=== PATIENT | female | born 1990 | race Caucasian/White ===

== ENCOUNTER 2020-11-29 16:00 | Emergency (ER) | payer OTHER ==
[~2020-11-29 16:00] MED LIST: FLEXERIL5 MG PO; PREDNISONE 20MG20 MG PO; PROTONIX 40MG T40 MG PO; ULTRAM50 MG PO; ZOFRAN4 MG PO
[2020-11-29] MEDS ORDERED: CYCLOBENZAPRINE10 MG PO (17:10)
[2020-11-29] MEDS ORDERED: ETODOLAC500 MG PO (17:10)
== END 2020-11-29 18:02 | disposition home or self-care (01) ==
LOC: FER 16:00
DX: M75.102 Unspecified rotator cuff tear or rupture of left shoulder, not specified as traumatic (principal); E11.9 Type 2 diabetes mellitus without complications; I10 Essential (primary) hypertension; F17.200 Nicotine dependence, unspecified, uncomplicated; Z79.84 Long term (current) use of oral hypoglycemic drugs; Z79.899 Other long term (current) drug therapy
CPT/HCPCS: 73030; J1885

== ENCOUNTER 2021-04-17 16:09 | Emergency (ER) | payer OTHER ==
[~2021-04-17 16:09] MED LIST changes: +CYCLOBENZAPRINE10 MG PO; +ETODOLAC500 MG PO
[2021-04-17 17:20] LABS: ALBUMIN 3.2 g/dL (3.4-5.0); BILIRUBIN - TOTAL 0.3 mg/dL (0.2-1.0); BUN/CREAT RATIO (CALC) 11.6 RATIO; CREATININE 0.69 mg/dL (0.51-0.95); POTASSIUM 3.5 mmol/L (3.5-5.1); TOTAL PROTEIN 7.2 g/dL (6.4-8.2)
[2021-04-17 17:24] LABS: BILIRUBIN NEGATIVE (NEGATIVE); BLOOD 3+ Ery/uL (NEGATIVE); CLARITY CLEAR (CLEAR); COLOR YELLOW (YELLOW); GLUCOSE (U) NORMAL (NORMAL); LEUKOCYTES 1+ Leu/uL (NEGATIVE); NITRITE NEGATIVE (NEGATIVE); PROTEIN NEGATIVE (NEGATIVE); SPECIFIC GRAVITY 1.025 (1.001-1.030); UROBILINOGEN 0.2 mg/dL (0.2-1.0); pH 5.5 (5.0-9.0)
[2021-04-17 17:24] LABS: BASOPHIL 0.5 % (0-2); EOSINOPHIL 2.7 % (0-5); HCT 42.5 % (37.0-47.0); HGB 14.6 g/dl (12.5-16.0); LYMPHOCYTE 36.6 % (15-48); MCHC 34.4 g/dL (32.0-36.0); MCV 90.2 fL (78.0-100.0); MONOCYTE 9.6 % (0-12); MPV 10.5 fL (6.0-9.5); NEUTROPHIL 50.4 % (41-80); NRBC 0; PLT 274 K/uL (150-400); RBC 4.71 M/uL (4.20-5.40); RDW 12.2 % (11.5-14.0); WBC 8.1 K/uL (4.0-10.5)
[2021-04-17 17:29] LABS: BACTERIA TRACE
[2021-04-17] MEDS ORDERED: MACROBID100 MG PO (19:11)
== END 2021-04-17 19:10 | disposition left against medical advice (07) ==
LOC: FER 16:09
PROVIDERS: Physician Assistant
DX: N30.01 Acute cystitis with hematuria (principal); E11.9 Type 2 diabetes mellitus without complications; F17.210 Nicotine dependence, cigarettes, uncomplicated; Z79.84 Long term (current) use of oral hypoglycemic drugs; Z90.710 Acquired absence of both cervix and uterus; Z90.721 Acquired absence of ovaries, unilateral; Z90.79 Acquired absence of other genital organ(s); Z85.819 Personal history of malignant neoplasm of unspecified site of lip, oral cavity, and pharynx; Z53.8 Procedure and treatment not carried out for other reasons
CPT/HCPCS: 36415; 80053; 81001; 85025; 99284